=== PATIENT | female | born 1960 | race Caucasian/White ===

== ENCOUNTER 2020-06-28 12:25 | Outpatient (REF) | payer OTHER, SELFPAY ==
[2020-06-28 14:03] LABS: MANUAL DIFF FLAG NO
[2020-06-28 14:09] LABS: Basophils Absolute Auto 0.1 X10*3/uL (0.0-0.2); Basophils Percent Auto 0.7 % (0-2); Eosinophils Absolute Auto 0.2 X10*3/uL (0.0-0.4); Eosinophils Percent Auto 1.8 % (0-4); Hematocrit 45.2 % (37-47); Imm Gran Abs Auto 0.03 X10*3/uL (0.00-0.03); Imm Gran Pct Auto 0.3 % (0.0-0.4); Lymphocytes Absolute Auto 2.2 X10*3/uL (1.2-4.9); Lymphocytes Percent Auto 24.6 % (20-40); Mean Corpuscular HGB Conc 33.2 g/dl (31.0-35.0); Mean Corpuscular Hemoglobin 29.8 pg (27.0-33.0); Mean Corpuscular Volume 89.9 fL (80-98); Mean Platelet Volume 10.2 fL (9.4-12.3); Monocytes Absolute Auto 0.5 X10*3/uL (0.1-1.2); Monocytes Percent Auto 5.9 % (2-11); Neutrophils Absolute Auto 5.9 X10*3/uL (2.0-8.3); Neutrophils Percent Auto 66.7 % (45-73); Platelet Count 253 X10*3/uL (160-400); Red Blood Count 5.03 X10*6/uL (4.20-5.50); Red Cell Distribution Width 11.9 % (11.0-16.0); White Blood Count 8.9 X10*3/uL (4.8-10.8)
[2020-06-28 14:42] LABS: Alanine Aminotransferase 16 U/L (0-31); Albumin Level 4.7 g/dL (3.5-5.0); Alkaline Phosphatase 59 U/L (39-117); Anion Gap 18 (12-20); Aspartate Amino Transferase 22 U/L (5-31); Bilirubin Total 0.9 mg/dL (0.0-1.0); Blood Urea Nitrogen 17 mg/dL (9-16); Calcium 9.5 mg/dL (8.4-10.2); Carbon Dioxide 26 mmol/L (22-29); Chloride 102 mmol/L (96-108); Cholesterol 230 mg/dL; Estimated Glomerular Filt Rate > 60; Glucose Fasting 92 mg/dL (60-99); HDL Cholesterol 61 mg/dL; LDL Cholesterol Calculated 144 mg/dl; Potassium 4.8 mmol/l (3.3-5.1); Sodium 141 mmol/L (135-145); Total Protein 7.8 g/dL (6.5-8.0); Triglycerides 129 mg/dL
[2020-06-28 14:50] LABS: Free T4 (Free Thyroxine) 1.22 ng/dL (0.71-1.85); Thyroid Stimulating Hormone 1.36 uIU/mL (0.32-4.0); Vitamin D 25-OH Total 32.1 ng/mL (>30)
[2020-07-03 05:37] LABS: HPV mRNA E6/E7 Not Detected (Not Detected)
== END 2020-06-28 12:26 | disposition home or self-care (01) ==
LOC: HO.HMGCLDS 12:25
PROVIDERS: PCP Internal Medicine; Visit Provider Internal Medicine
DX: E89.0 Postprocedural hypothyroidism (principal); M85.80 Other specified disorders of bone density and structure, unspecified site; Z12.31 Encounter for screening mammogram for malignant neoplasm of breast; Z12.4 Encounter for screening for malignant neoplasm of cervix
CPT/HCPCS: 36415; 80053; 80061; 82306; 84439; 84443; 85025; 87624; 87625; 88141; 88142

== ENCOUNTER 2020-11-11 09:30 | Outpatient (REF) | payer OTHER, SELFPAY ==
--- NOTE | ~2020-11-11 | MM_ITS ---
EXAMINATION: MM SCREENING DIGITAL BREAST TOMOSYNTHESIS, BILATERAL CLINICAL INFORMATION: Screening. Asymptomatic. Personal history right lumpectomy for breast cancer 2004. History thyroid cancer 2011. COMPARISON: Mammography: 11/10/2019 TECHNIQUE: Digital breast tomosynthesis is performed in both the craniocaudal and mediolateral oblique views along with computer-aided detection (CAD). Synthesized 2D images are generated from the tomosynthesis. FINDINGS: There are scattered areas of fibroglandular density (ACR BI-RADS breast composition Category b). There are post therapy changes right breast with mild reduced breast size and stable scarring posterior 1:00 o'clock position. Neither breast demonstrates interval mass or architectural abnormality or abnormal calcifications. There is an intramammary node again seen posterior upper outer left breast. No significant changes. MM/MM tomosynthesis screening BI IMPRESSION: No mammographic evidence of malignancy. Post therapy changes right breast. ASSESSMENT: BI-RADS 2: Benign RECOMMENDATION: Routine annual mammography screening. This patient's information was entered into a reminder system with a target due date for their next mammogram.
== END 2020-11-11 09:31 | disposition home or self-care (01) ==
LOC: HO.MAMMO 09:30
PROVIDERS: PCP Internal Medicine; Visit Provider Internal Medicine
DX: Z12.31 Encounter for screening mammogram for malignant neoplasm of breast (principal)
CPT/HCPCS: 77063; 77067

== ENCOUNTER 2020-12-27 09:35 | Outpatient (REF) | payer OTHER, SELFPAY ==
[2020-12-27 12:01] LABS: Cholesterol 186 mg/dL; HDL Cholesterol 48 mg/dL; LDL Cholesterol Calculated 111 mg/dl; Triglycerides 136 mg/dL
[2020-12-27 12:25] LABS: Thyroid Stimulating Hormone 0.41 uIU/mL (0.32-4.0)
== END 2020-12-27 09:36 | disposition home or self-care (01) ==
LOC: HO.HMGCLDS 09:35
PROVIDERS: PCP Internal Medicine; Visit Provider Internal Medicine
DX: E78.5 Hyperlipidemia, unspecified (principal); E89.0 Postprocedural hypothyroidism
CPT/HCPCS: 36415; 80061; 84439; 84443

== ENCOUNTER 2021-01-03 11:49 | Outpatient (REF) | payer OTHER, SELFPAY ==
--- NOTE | ~2021-01-03 | XR_ITS ---
EXAMINATION: XR FOOT, LEFT CLINICAL INFORMATION: Pain in the left foot. COMPARISON: None TECHNIQUE: AP, lateral, and oblique views of the left foot. FINDINGS: Small plantar calcaneal spur. Bones, joints and soft tissues otherwise are unremarkable. XR/XR foot LT min 3V IMPRESSION: Small plantar calcaneal spur.
[2021-01-03 14:17] LABS: Rheumatoid Factor 32.5 IU/mL (<15.0)
[2021-01-03 14:40] LABS: Erythrocyte Sedimentation Rate 9 MM/HR (0-20)
[2021-01-04 13:35] LABS: CRP High Sensitivity 7.5 mg/L
[2021-01-07 21:52] LABS: Anti Nuclear Antibody Pattern Nuclear, Centromere; Anti Nuclear Antibody Screen POSITIVE (NEGATIVE); Anti Nuclear Antibody Titer > OR = 1:1280 titer
== END 2021-01-03 11:50 | disposition home or self-care (01) ==
LOC: HO.HMGCX 11:49
PROVIDERS: PCP Internal Medicine; Visit Provider Internal Medicine
DX: M79.672 Pain in left foot (principal); M25.50 Pain in unspecified joint; Z82.69 Family history of other diseases of the musculoskeletal system and connective tissue
CPT/HCPCS: 36415; 73630; 85652; 86038; 86039; 86141; 86431

== ENCOUNTER 2024-10-06 15:48 | Emergency (ER) | payer OTHER, SELFPAY ==
--- NOTE | ~2024-10-06 | XR_ITS ---
CLINICAL HISTORY: 2nd digit pain, swelling, redness infection 3 view [id number] digit Comparison: None Findings: There is a large cluster of coarse calcifications within the plantar soft tissues of the distal 2nd finger. Individual calcifications measure up to 1 cm in size. Adjacent bony structures are unremarkable. There is no bony destruction, erosion or periostitis. No fracture or dislocation. Tiny calcifications or ossific bodies are also noted adjacent to the neck of the second middle phalanx and adjacent to the second distal interphalangeal joint. There are moderate arthritic changes of the 1st carpometacarpal joint. No radiopaque foreign body. IMPRESSION: 1. There is a cluster of coarse calcifications within the soft tissues of the distal 2nd finger. 2. No evidence of osteomyelitis. This document has been electronically signed by: Ilene Timmons MD on 10/06/2024 17:11:15
[2024-10-06 16:12] VITALS: BP 168/92; PULSE 70; RESP 16; TEMP 36.7; O2SAT 98; BMI 33.7
--- NOTE | 2024-10-06 16:15 | ED.EXTPRO ---
HPI - Extremity Problem General Chief complaint: Skin/Abscess/Foreign Body Stated complaint: left second finger infection Time Seen by Provider: 10/06/24 19:34 History of Present Illness ED Provider: Sonia BENAVIDES Narrative: the patient is a 63-year-old woman who says that she has had some problems with the pad of her left index finger for a Few years. She says that approximately 4 years ago she had what she thought was some kind of an insect or spider bite to the pad of the left index finger and she has had problems with the finger since then. She has seen a hand surgeon, Dr. Daniel Stanley in [place]. She has had x-rays that apparently show some kind of calcinosis in the pad of the finger. She last saw a hand surgeon several weeks ago. There was consideration for surgery to remove the calcifications in the pad of the finger however the hand surgeon wants her to see a infantry operations specialist first because she has had some possible positive rheumatology testing. Patient says that about 4 or 5 days ago she started to have increasing pain and redness at the pad of the finger. She says that she called her hand surgeon on Wednesday and was told to go to emergency room if she was having significant problems. Yesterday, , she went to an urgent care. She says that she was told by the provider at the urgent care that they could not see her there because she would require IV antibiotics. She now comes on Wednesday evening for evaluation here. She denies any trauma. She denies any fever, sweats, chills. She is able to use the finger although she has pain and redness and swelling at the pad. There has been no discharge. Related Data Home Medications ?Medication ?Instructions ?Recorded ?Confirmed aspirin 81 mg tablet,delayed 81 mg PO DAILY 06/28/20 06/28/20 release (Adult Low Dose Aspirin) calcium 315 mg (as 1 tab PO DAILY 06/28/20 06/28/20 citrate)-vitamin D3 6.25 mcg (250 unit) tablet (Citracal + Vitamin D Maximum) cholecalciferol (vitamin D3) 250 250 mcg PO QWEEK 06/28/20 06/28/20 mcg (10,000 unit) capsule flaxseed oil 1,000 mg capsule 1,000 mg PO DAILY 06/28/20 06/28/20 flu vac qs 2019(4 yr up)CD(PF) 60 ml IM 06/28/20 06/28/20 mcg(15 mcgx4)/0.5 mL IM syringe garlic 400 mg tablet 400 mg PO DAILY 06/28/20 06/28/20 multivitamin with minerals-folic tab PO 06/28/20 06/28/20 acid 200 mcg chewable tablet (Adult Multivitamin Gummies) turmeric root extract 500 mg 500 mg PO DAILY 06/28/20 06/28/20 capsule omega 3,6,9 combination no.7 92 mg mg PO 01/03/21 (43 mg-22 [id number]) chew tablet Previous Rx's ?Medication ?Instructions ?Recorded levothyroxine 100 mcg tablet 100 mcg PO .COMPLEX #32 tabs 07/26/20 cephalexin 500 mg capsule 500 mg PO QID 10 days #40 caps 10/06/24 doxycycline monohydrate 100 mg 100 mg PO BID #20 caps 10/06/24 capsule Allergies Allergy/AdvReac Type Severity Reaction Status Date / Time No Known Allergies Allergy Verified 10/06/24 16:15 [No Known Allergies*] Review of Systems Review of Systems: Yes all other systems are reviewed and are negative [facility] Past Medical History Medical History (Updated 10/07/24 @ 00:01 by Martha Candelario) Positive FAIZAN (antinuclear antibody) Family history of systemic lupus erythematosus Polyarthralgia Foot pain, left Dyslipidemia Infiltrating ductal carcinoma of breast, estrogen receptor positive, stage 1 Breast cancer, right Papillary carcinoma of thyroid Osteopenia after menopause Postsurgical hypothyroidism Surgical History History of thyroidectomy History of lumpectomy of right breast Hx of cholecystectomy History of nasal septoplasty Family History Family History Father Cardiac disease Heart failure Pacemaker Mother Cancer of thyroid Endometrial cancer Son Non Hodgkin's lymphoma Son No problems noted. 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 She does not seem in distress or toxic or ill. HEENT: Other: Face is symmetrical, mucous membranes moist Eyes: General: appearance normal, both eyes and all related structures Neck: Neck: Yes normal visual inspection and Yes full ROM Skin: Other: the skin of the pad of the left index finger seems somewhat swollen and mildly erythematous. The dorsum of the finger appears normal. There is no paronychia. Neuro: Other: The patient is awake and alert with normal mental status and normal cranial nerves. She has normal motor and sensory function of the left index finger. Extrem: Other: The patient has swelling and mild erythema to the pad of the left index finger. There is no lymphangitic streaking. Patient can flex the joints of the finger well. There is no tenderness along the flexor tendon of the finger. The pad is diffusely tender but mostly tender at the very tip of the pad and also somewhat more tender on the radial side of the pad. Course Course Course Narrative: This is an RME performed by Guy Bella CNP: Additional HPI, ROS, PE not included below will be deferred to primary provider. 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 Over the past 3-4 days she is having increasing redness, pain, swelling that is now extending further down the finger and into the hand. Reports that she presented to urgent care yesterday was advised that antibiotics would not be of benefit for her since it is at the distal tip of the finger. She has followed with Daniel Stanley hand surgeon on of [facility] who was offered surgery due to the calcinosis that has formed, but wants her to have a infantry operations specialist appointment first. Medications Administered Discontinued Medications Generic Name Dose Route Start Last Admin Trade Name Maria Esther PRN Reason Stop Dose Admin Cephalexin HCl 500 mg 10/06/24 20:55 10/06/24 21:16 Cephalexin 500 Mg Capsule PO 10/06/24 20:56 500 mg ONCE ONE Administration Doxycycline Monohydrate 100 mg 10/06/24 20:55 10/06/24 21:16 Doxycycline Monohydrate 100 Mg Capsule PO 10/06/24 20:56 100 mg ONCE ONE Administration Lidocaine HCl 10 ml 10/06/24 20:05 10/06/24 20:15 Lidocaine Hcl 1 % Mpf 5 Ml Vial INFILTRATI 10/06/24 20:06 10 ml ONCE ONE Administration Medical Decision Making Medical Decision Making [facility] Narrative: The patient is a 63-year-old woman who presents for evaluation of a swollen and red pad of the left index finger. Clinically this prompted consideration for a possible felon. I do not feel there is any flexor tendon involvement. I do not feel there is any lymphangitis associated with this. There are no systemic symptoms. She has a normal white count differential. Patient has had problems with the pad of the finger for some time which she attributes to some kind of an insect or spider bite 4 years ago. 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 The x-ray is fairly impressive with a degree of calcifications within the pad. Since the patient seemed to have 2 areas of significant tenderness on the pad of the finger I felt it would be reasonable to ensure that there was no pus collection that might be drainable. I therefore proceeded to administer a digital block using 1% lidocaine at the base of the finger after prepping the skin with Betadine. 2.5 mL of 1% lidocaine were administered with 27 gauge needle on either side of the base of the finger resulting in good anesthesia at the tip of the finger. I then used a #11 Blade to make 2 very small incisions in the areas of maximal tenderness at the pad. Neither of these incisions released pus. both incisions only released a small amount of blood. This was swabbed and sent for culture. I reviewed the case including pictures of the finger and of the x-rays with the on-call provider for Orthopedics and we agreed that the patient could probably be managed as an outpatient appropriately on oral antibiotics and follow up with her hand surgeon. She should therefore take cephalexin and doxycycline over the weekend and call her hand surgeon on Wednesday morning. If worse over the weekend she should try to reach the on-call provider for her hand surgeon or return to the ER or go to [facility] Emergency Room since her hand surgeon is affiliated with that institution. Lab Data 10/06/24 17:36 10/06/24 17:36 Labs: Lab Results 10/06/24 Range/Units 17:36 WBC 7.9 (4.8-10.8) X10*3/uL RBC 4.37 (4.20-5.50) X10*6/uL Hgb 13.2 (12.0-16.0) g/dl Hct 39.0 (37.0-47.0) % MCV 89.2 (80.0-98.0) fL MCH 30.2 (27.0-33.0) pg MCHC 33.8 (31.0-35.0) g/dl RDW 12.2 (11.0-16.0) % Plt Count 223 (160-400) X10*3/uL MPV 9.4 (9.4-12.3) fL Immature Gran % (Auto) 0.4 (0.0-0.4) % Neut % (Auto) 62.0 (45-73) % Lymph % (Auto) 26.7 (20-40) % [place] % (Auto) 7.3 (2-11) % Eos % (Auto) 3.2 (0-4) % Baso % (Auto) 0.4 (0-2) % Lymph # (Auto) 2.1 (1.2-4.9) X10*3/uL [place] # (Auto) 0.6 (0.1-1.2) X10*3/uL Eos # (Auto) 0.3 (0.0-0.4) X10*3/uL Baso # (Auto) 0.0 (0.0-0.2) X10*3/uL Abs Immat Gran (auto) 0.03 (0.00-0.03) X10*3/uL Absolute Neuts (auto) 4.9 (2.0-8.3) x10*3/uL Absolute Nucleated RBC 0.000 (0.0-0.012) X10*3/uL Nucleated RBC % (auto) 0.0 (0.0-0.2) /100WBC Sodium 140 (135-145) mmol/L Potassium 5.0 (3.3-5.1) mmol/L Chloride 103 (96-108) mmol/L Carbon Dioxide 28 (22-29) mmol/L Anion Gap 14 (12-20) BUN 17 H (9-16) mg/dL Creatinine 0.76 (0.5-1.4) mg/dL Estim Creat Clear Calc 90.9 Estimated GFR > 60 Random Glucose 90 (60-115) mg/dL Calcium 9.6 (8.4-10.2) mg/dL Total Bilirubin 0.7 (0.0-1.0) mg/dL AST 26 (5-31) U/L ALT 21 (0-31) U/L Alkaline Phosphatase 51 (39-117) U/L C-Reactive Protein 1.38 H (< or = 0.50) mg/dL Total Protein 7.2 (6.5-8.0) g/dL Albumin 4.2 (3.5-5.0) g/dL Procedures Abscess I/D Site: hand ( Pad of left index finger, possible felon) Side (if applicable): left Local Anesthetic: lidocaine 1% Amount of anesthesia used (mL): 5 Technique: incised with blade ( 2 very small incisions were made at the pad at the sites of maximal tenderness. Neither incision released any pus. Only a small amount of bleeding.) Sent for culture/gram staining?: Yes Irrigation: No Packing used?: none Discharge Plan Discharge Clinical Impression: Cellulitis of finger of left hand Patient Disposition: Home, Self-Care Additional Instructions: Please take the antibiotics as prescribed. The doxycycline should be taken approximately every 12 hours. The cephalexin should be taken approximately every 6 hours. Keep the hand elevated to reduce swelling and pain. Use bacitracin to the small wounds. Please stay in touch with Dr. Stanley, call the office on Wednesday or over the weekend, if you feel you are worse, contact the on-call provider. If significantly worse return to the emergency room or go to the [facility] Emergency room. Prescriptions: New cephalexin 500 mg capsule 500 mg PO QID 10 Days Qty: 40 0RF doxycycline monohydrate 100 mg capsule 100 mg PO BID Qty: 20 0RF No Action levothyroxine 100 mcg tablet 100 mcg PO .COMPLEX Qty: 32 6RF Rx Instructions: 100 mcg PO 1 tablet daily for 6 days a week and 1 and half tablets on Wednesday; Flucelvax Quad (PF) 60 mcg (15 mcg x 4)/0.5 mL syringe IM aspirin [Adult Low Dose Aspirin] 81 mg tablet,delayed release (DR/EC) 81 mg PO DAILY calcium citrate-vitamin D3 [Citracal + D Maximum] 315 mg-6.25 mcg (250 unit) tablet 1 tab PO DAILY Adult Multivitamin Gummies 200 mcg tablet,chewable PO cholecalciferol (vitamin D3) 250 mcg (10,000 unit) capsule 250 mcg PO QWEEK flaxseed oil 1,000 mg capsule 1,000 mg PO DAILY Rx Instructions: administer with a meal garlic 400 mg tablet 400 mg PO DAILY turmeric root extract 500 mg capsule 500 mg PO DAILY Referrals: [facility] [Provider Group] Interventions: ED Discharge Assessment Last Done: 10/06/24 21:55 Discharge Date/Time: 10/06/24 21:57 Print Language: Urdu
[2024-10-06 17:59] LABS: MANUAL DIFF FLAG NO
[2024-10-06 18:03] LABS: Basophils Percent Auto 0.4 % (0-2); Eosinophils Absolute Auto 0.3 X10*3/uL (0.0-0.4); Eosinophils Percent Auto 3.2 % (0-4); Hemoglobin 13.2 g/dl (12.0-16.0); Imm Gran Abs Auto 0.03 X10*3/uL (0.00-0.03); Imm Gran Pct Auto 0.4 % (0.0-0.4); Lymphocytes Absolute Auto 2.1 X10*3/uL (1.2-4.9); Lymphocytes Percent Auto 26.7 % (20-40); Mean Corpuscular HGB Conc 33.8 g/dl (31.0-35.0); Mean Corpuscular Hemoglobin 30.2 pg (27.0-33.0); Mean Corpuscular Volume 89.2 fL (80.0-98.0); Mean Platelet Volume 9.4 fL (9.4-12.3); Monocytes Absolute Auto 0.6 X10*3/uL (0.1-1.2); Monocytes Percent Auto 7.3 % (2-11); Neutrophils Absolute Auto 4.9 x10*3/uL (2.0-8.3); Platelet Count 223 X10*3/uL (160-400); Red Blood Count 4.37 X10*6/uL (4.20-5.50); Red Cell Distribution Width 12.2 % (11.0-16.0); White Blood Count 7.9 X10*3/uL (4.8-10.8)
[2024-10-06 18:15] VITALS: BP 170/75; PULSE 70; RESP 16; TEMP 36.6; O2SAT 96
--- OUTSIDE RECORDS SUMMARY | 2024-10-06 18:15 | XMS_ITS | Continuity of Care Document ---
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 Role Phone Conchis HANSON, Ryan Lanier Primary Care Physician [place] [facility] [place] 08/31/24 - 09/30/24 [facility] Adult [address] [place] [phone]- Encounter Type: Triage Allergies, Adverse Reactions, Alerts No Known Allergies Immunizations Given and Recorded Vaccine Date Status Refusal Reason zoster vaccine, inactivated 08/21/23 Recorded zoster vaccine, inactivated 06/02/23 Recorded SARS-CoV-2 mRNA ([id number]) vax 10/20/21 Recorded influenza virus vaccine, inactivated 03/31/21 Konrad rded influenza virus vaccine, inactivated 03/10/20 Konrad rded influenza virus vaccine, inactivated 02/21/18 Konrad rded influenza virus vaccine, inactivated 1 06/08/17 Gi jeromy influenza virus vaccine, inactivated 05/30/14 Give n influenza virus vaccine, inactivated 03/28/13 Give n influenza virus vaccine, inactivated 04/10/08 Give n SARS-CoV-2 (COVID-19) mRNA BNT-162b2 vac 03/31/21 Recorded SARS-CoV-2 (COVID-19) mRNA BNT-162b2 vac 07/29/20 Recorded SARS-CoV-2 (COVID-19) mRNA BNT-162b2 vac 07/08/20 Recorded tetanus/diphtheria/pertussis, acel(Tdap) 06/13/18 Recorded influ virus vac, H1N1, inactive(oldterm) 2 05/01/09 Given Tet/Diphth/Acel, Pertussis (oldterm) 04/10/08 Give n tetanus-diphtheria toxoids (Td) 07/08/98 Given 1Result Comment: [06/08/2017] [facility] [id number] 2Admin Note: per pt rcvd elsewhere Medications (Vitamin D3) Cholecalciferol 400 HALF-WAY units/mL oral syringe 1 mL = 10 mcg, By Mouth, Daily, 0 Refills, Maintenance, 07/11/21 8:15:00 AM EST, Partial fill upon patientrequest if the prescription is for a schedule II opioid drug. Start Date: 07/11/21 Status: Ordered Repeat number: 1 aspirin 81 mg oral tablet 81 mg, 1, tablet, By Mouth, Daily, 0 Refills Start Date: 11/11/05 Status: Ordered Repeat number: 1 Citracal Maximum + Vitamin D Tablet 2 tablets, By Mouth, Daily, 0 Refills, Maintenance, 10/15/11 1:26:21 PM EDT Start Date: 10/15/11 Status: Ordered Repeat number: 1 elderberry 0 Refills, Maintenance, 07/11/21 8:15:00 AM EST, Partial fill upon patient request if the prescription is for a schedule II opioid drug. Start Date: 07/11/21 Status: Ordered Repeat number: 1 Glucosamine Chondroitin 1 capsule, By Mouth, Daily, 0 Refills, Maintenance, 08/28/24 9:06:00 AM EDT, Partial fill upon patient request if the prescription is for a schedule II opioid drug. Start Date: 08/28/24 Status: Ordered Repeat number: 1 levothyroxine 0.1 mg oral tablet See Instructions, TAKE 1 TABLET BY MOUTH EVERY DAY ON SUNDAYS TAKE 1+1/2 TABLETS, # 96 tablet, 3 Refills, Maintenance, 08/28/24 9:31:00 AM EDT, [facility]/pharmacy #[id number], 172.4, cm, 08/28/24 9:07:00 EDT, Height Start Date: 08/28/24 Status: Ordered Quantity: 96.0 Unit: tablet Repeat number: 4 [place]-3 Fish Oil = 1,200 mg, By Mouth, 3 times a day, 0 Refills, Maintenance, 08/28/24 9:07:00 AM EDT, Partial fill upon patient request if the prescription is for a schedule II opioid drug. Start Date: 08/28/24 Status: Ordered Repeat number: 1 Turmeric = 500 mg, By Mouth, Daily, 0 Refills, Maintenance, 07/11/21 8:15:00 AM EST, Partial fill upon patientrequest if the prescription is for a schedule II opioid drug. Start Date: 07/11/21 Status: Ordered Repeat number: 1 Problem List Condition Confirmation Course Effective Dates Status Health Status Informant Acquired hypothyroidism Confirmed Active Cholecystectomy Confirmed Active Colonoscopy 1, 2 Confirmed Active Gastroesophageal reflux disease with hiatal hernia Confirmed Active Bilateral hip pain Confirmed Active History of breast cancer in female 3 Confirmed 09/18/04 Active History of thyroid cancer 4 Confirmed Active Hypercholesterolemia Confirmed Active Mitral regurgitation 5 Confirmed Active Obese class I Confirmed Active Thumb pain Confirmed Active Raynauds disease Confirmed Active 1Colonoscopy 2013 normal, repeat 2023. 2colo 2003 nl, repeat 2012 3Right breast cancer,PT1c,PN1,hormone receptor positive, lumpectomy, received AC-T chemotherapy, Tamoxifen and Arimidex and radiation 4Status post thyroidectomy 2011, status post further removal of malignant thyroid tissue 2013. Followed by endocrinology Dr. womack 5trace no abx proph needed Social History Social History Type Response Smoking Status Never smoker entered on: 05/30/14 Sex Sex Representation Female (finding) Patient Care team information Care Team Personnel Name: Jaci Gonzalez RN Position: [facility] RN Member Role: Primary Care Nurse Name: Josefa Alvarado RN Position: [facility] RN Member Role: Primary Care Nurse Name: Ryan Balderrama MD Position: [facility] Physician - Primary Care Member Role: PCP Address: [address] [place] [phone]- Telecom: Name: Juliane Larson Position: [facility] Member Role: Primary Care Nurse Care Team Related Persons Name: CAROL GAMBOA Insurance Providers Guarantor name: DANDRE COOPER [facility] Plan Information #: 1 Payer: [facility] Member Number: NA Policy Number: NA Group Number: NA
--- OUTSIDE RECORDS SUMMARY | 2024-10-06 18:15 | XMS_ITS | Continuity of Care Document ---
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 Role Phone Conchis HANSON, Ryan Lanier Primary Care Physician [place] [facility] [place] 10[place]01/24 [facility] Adult [address] [place] [phone]- Encounter Type: Triage Allergies, Adverse Reactions, Alerts No Known Allergies Immunizations Given and Recorded Vaccine Date Status Refusal Reason zoster vaccine, inactivated 08/21/23 Recorded zoster vaccine, inactivated 06/02/23 Recorded SARS-CoV-2 mRNA ([id number]) vax 10/20/21 Recorded influenza virus vaccine, inactivated [...] toxoids (Td) 07/08/98 Given 1Result Comment: [06/08/2017] [facility] [id number] 2Admin Note: per pt rcvd elsewhere Medications (Vitamin D3) Cholecalciferol 400 CUSTODIAL units/mL oral syringe 1 mL = 10 [...] 3 Refills, Maintenance, 08/28/24 9:31:00 AM EDT, [facility]/pharmacy #[id number], 172.4, cm, 08/28/24 9:07:00 EDT, Height Start Date: 08/28/24 Status: Ordered Quantity: 96.0 Unit: tablet Repeat number: 4 [place]-3 Fish Oil = 1,200 mg, By Mouth, [...] Team Personnel Name: Jaci Gonzalez RN Position: [facility] RN Member Role: Primary Care Nurse Name: Josefa Alvarado RN Position: [facility] RN Member Role: Primary Care Nurse Name: Ryan Balderrama MD Position: [facility] Physician - Primary Care Member Role: PCP Address: [address] [place] [phone]- Telecom: Name: Juliane Larson Position: [facility] Member Role: Primary Care Nurse Care Team Related Persons Name: CAROL GAMBOA Insurance Providers Guarantor name: DANDRE COOPER [facility] Plan Information #: 1 Payer: [facility] Member Number: NA Policy Number: NA Group Number: NA
[2024-10-06 18:17] LABS: Alanine Aminotransferase 21 U/L (0-31); Albumin Level 4.2 g/dL (3.5-5.0); Alkaline Phosphatase 51 U/L (39-117); Anion Gap 14 (12-20); Aspartate Amino Transferase 26 U/L (5-31); Bilirubin Total 0.7 mg/dL (0.0-1.0); Blood Urea Nitrogen 17 mg/dL (9-16); C Reactive Protein 1.38 mg/dL (< or = 0.50); Calcium 9.6 mg/dL (8.4-10.2); Carbon Dioxide 28 mmol/L (22-29); Chloride 103 mmol/L (96-108); Creatinine Clr Calc Pharmacy 90.9; Estimated Glomerular Filt Rate > 60; Glucose Random 90 mg/dL (60-115); Sodium 140 mmol/L (135-145); Total Protein 7.2 g/dL (6.5-8.0)
--- NOTE | 2024-10-06 18:20 | MHC.EDTECH ---
This pct just assumed care of Patient ,vitals taken ,Call alejandro within Pt reach .
--- NOTE | 2024-10-06 18:31 | PC.NURSE ---
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 Over the past 3-4 days she is having increasing redness, pain, swelling that is now extending further down the finger and into the hand. Reports that she presented to urgent care yesterday was advised that antibiotics would not be of benefit for her since it is at the distal tip of the finger. She has followed with Daniel Stanley hand surgeon on of [facility]. Patient alert and oriented. Respirations even and non-labored. Abdomen soft, non-tender. Tip of left 2nd finger red, swollen and warm with small blister.
[2024-10-06] MEDS: Lidocaine HCl 1 % MPF 5 ML VIAL 10 ML INFILTRATI (20:15)
[2024-10-06 21:11] VITALS: BP 160/67; PULSE 63; RESP 16; TEMP 36.7; O2SAT 97
[2024-10-06] MEDS: cephALEXin 500 MG CAPSULE PO (21:16)
[2024-10-06] MEDS: Doxycycline Monohydrate 100 MG CAPSULE PO (21:16)
[2024-10-06 21:55] VITALS: BP 160/67; PULSE 63; RESP 16; TEMP 36.7; O2SAT 97
== END 2024-10-06 21:57 | disposition home or self-care (01) ==
PROVIDERS: Nurse Practitioner Family; Emergency Provider Emergency Medicine; PCP Internal Medicine
DX: L03.012 Cellulitis of left finger (principal); M79.645 Pain in left finger(s); Z79.899 Other long term (current) drug therapy
CPT/HCPCS: 10060; 36415; 73140; 80053; 85025; 86140; 87070; 87205; 99284; J2003

== ENCOUNTER → 2024-10-06 16:16 | Outpatient (BNV) | payer SELFPAY | PROVIDERS: PCP Internal Medicine; Visit Provider Radiology Diagnostic Radiology | DX: M61.48 Other calcification of muscle, other site (principal) | CPT/HCPCS: 73140 ==

== ENCOUNTER 2025-02-03 09:32 | Emergency (ER) | payer OTHER, SELFPAY ==
--- NOTE | ~2025-02-03 | XR_ITS ---
CLINICAL HISTORY: Torticollis 5 views cervical spine Comparison: None Findings: No fractures or listhesis. Odontoid and lateral masses intact. Mild degenerative facet arthropathy throughout. Mild disc space narrowing C3 through C6 with small anterior and posterior vertebral body osteophytes. Unicinate and transverse processes intact. Mild bony neural foramina compromise C3-4 and C4-5 on the left Lordotic curvature is preserved. No scoliosis Normal bone mineralization. Multiple surgical clips lower neck. No widening of the retropharyngeal soft tissues. Lung apices unremarkable. Impression: 1. No fractures or listhesis. 2. Mild degenerative spondylosis. Minimal bony neural foramina compromise. 3. Normal cervical lordosis. This document has been electronically signed by: Christiano Lao MD on 02/03/2025 10:58:23
[2025-02-03 09:35] VITALS: BP 180/85; PULSE 78; RESP 16; TEMP 36.1; O2SAT 98; BMI 32.3
[2025-02-03 09:44] VITALS: BP 145/72; PULSE 68; RESP 18; O2SAT 100
--- NOTE | 2025-02-03 10:03 | ED.NECK ---
HPI - Neck Pain/Injury General Chief Complaint: Neck Pain/Injury Stated Complaint: neck pain Time Seen by Provider: 02/03/25 09:48 Source: patient Mode of arrival: ambulatory Limitations: no limitations History of Present Illness ED Provider: HPI Narrative: 64-year-old, nondiabetic, no injury, presenting with torticollis with decreased range of motion to the left for the past 1 week, has been working outside in the garden and prior to that was playing golf, no fevers or chills, no dysphonia, no dysphagia, no weakness or numbness in upper extremities. Pain is worse with movement. Related Data Home Medications ?Medication ?Instructions ?Recorded ?Confirmed aspirin 81 mg tablet,delayed 81 mg PO DAILY 06/28/20 06/28/20 release (Adult Low Dose Aspirin) calcium 315 mg (as 1 tab PO DAILY 06/28/20 06/28/20 citrate)-vitamin D3 6.25 mcg (250 unit) tablet (Citracal + Vitamin D Maximum) cholecalciferol (vitamin D3) 250 250 mcg PO QWEEK 06/28/20 06/28/20 mcg (10,000 unit) capsule flaxseed oil 1,000 mg capsule 1,000 mg PO DAILY 06/28/20 06/28/20 flu vac qs 2019(4 yr up)CD(PF) 60 ml IM 06/28/20 06/28/20 mcg(15 mcgx4)/0.5 mL IM syringe garlic 400 mg tablet 400 mg PO DAILY 06/28/20 06/28/20 multivitamin with minerals-folic tab PO 06/28/20 06/28/20 acid 200 mcg chewable tablet (Adult Multivitamin Gummies) turmeric root extract 500 mg 500 mg PO DAILY 06/28/20 06/28/20 capsule omega 3,6,9 combination no.7 92 mg mg PO 01/03/21 (43 mg-22 [id number]) chew tablet Previous Rx's ?Medication ?Instructions ?Recorded levothyroxine 100 mcg tablet 100 mcg PO .COMPLEX #32 tabs 07/26/20 cephalexin 500 mg capsule 500 mg PO QID 10 days #40 caps 10/06/24 doxycycline monohydrate 100 mg 100 mg PO BID #20 caps 10/06/24 capsule capsaicin 0.035 % topical patch 1 patch topical TID PRN pain 7 02/03/25 days #10 ea prednisone 20 mg tablet 40 mg (2 x 20 mg) PO DAILY 4 days 02/03/25 #8 tabs Allergies Allergy/AdvReac Type Severity Reaction Status Date / Time No Known Allergies (No Known Allergy Verified 02/03/25 09:38 Allergies*) Review of Systems Constitutional: Constitutional: Reports as per [facility] Past Medical History Medical History (Updated 02/03/25 @ 11:22 by Jayesh Andrews DO) Positive FAIZAN (antinuclear antibody) Family history of systemic lupus erythematosus Polyarthralgia Foot pain, left Dyslipidemia Infiltrating ductal carcinoma of breast, estrogen receptor positive, stage 1 Breast cancer, right Papillary carcinoma of thyroid Osteopenia after menopause Postsurgical hypothyroidism Surgical History History of thyroidectomy History of lumpectomy of right breast Hx of cholecystectomy History of nasal septoplasty Family History Family History Father Cardiac disease Heart failure Pacemaker Mother Cancer of thyroid Endometrial cancer Son Non Hodgkin's lymphoma Son No problems noted. 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 Current occupational exposures/hazards: No Physical Exam Vital Signs: Vital Signs: Last Vital Signs Temp 96.9 F 02/03/25 09:35 Pulse 68 02/03/25 09:44 Resp 18 02/03/25 09:44 BP 145/72 H 02/03/25 09:44 Pulse Ox 100 02/03/25 09:44 O2 Del Method Room Air 02/03/25 09:44 BMI result Body Mass Index 32.3 Const: Other: Gen: ?Overall well-appearing patient HEENT: PERRLA, EOMI, MMM, uvula is midline, good dentition, no anterior neck masses Neck: Decreased range of motion rotation to the left and extension, spasm to the left trapezius and suboccipital area CV: RRR, no obvious murmurs appreciated Resp: ?No wheezing rales rhonchi no stridor moving air well MSK: FROM, strength 5/5 all extremities, radial pulses +2 bilaterally Skin: Warm, dry, intact, Neuro: ?Alert and oriented x3, moving upper and lower extremities symmetrically, no obvious facial asymmetry noted, no motor deficits bilateral upper extremities Medications Administered Discontinued Medications Generic Name Dose Route Start Last Admin Trade Name Maria Esther PRN Reason Stop Dose Admin Dexamethasone 10 mg 02/03/25 10:04 02/03/25 10:29 Dexamethasone 2 Mg Tablet PO 02/03/25 10:05 10 mg ONCE ONE Administration Dexamethasone 10 mg 02/03/25 10:25 02/03/25 10:30 Dexamethasone 2 Mg Tablet PO 02/03/25 10:26 Not Given ONCE ONE Medical Decision Making Medical Decision Making MDM Narrative: Examination of the neck and oropharynx with consideration for below, we will obtain x-rays to evaluate for obvious destructive lesions unlikely, likely has spasm neurovascular motor or sensory deficits identified, did not feel further blood work or CT imaging is indicated, offered trigger point injections, continue anti-inflammatories, outpatient follow up with physical therapy anticipated Differential Diagnosis Differential Diagnoses: The differential diagnosis associated with the presentation includes (Musculoskeletal, infectious, traumatic, cervical myelopathy, malignancy) Independent Interpretation I performed an independent interpretation of an: Plain X-Ray (Arthritic changes and loss of lordosis resulting in straight spine, this is versus Radiology interpretation) Radiology Impression Discussion of test interpretation with radiology: I have reviewed the radiologist's reading. (mpression: 1. No fractures or listhesis. 2. Mild degenerative spondylosis. Minimal bony neural foramina compromise. 3. Normal cervical lordosis.) Tests considered The following testing was considered but not selected: CT cervical spine, CT neck soft tissue, blood work Prescription Management I considered prescription management with: Pain Medication Procedures Procedure Narrative Procedure Narrative: 10 trigger points identified to the right and left neck suboccipital and trapezius area, cleaned with alcohol and using 21 gauge needle a total of 14 cc 2% lidocaine without epinephrine injected, patient tolerated procedure well, this is a verbal consent Discharge Plan Discharge Clinical Impression: Acute torticollis Patient Disposition: Home, Self-Care Additional Instructions: Gentle axigd-vu-[id number] exercises at home, heat and ice both good Continue with steroids starting tomorrow Capsaicin ointment patches to your neck and trapezius area Trigger points injected hopefully this will help with some of the spasm Worsening issues or concerns come back to the ER otherwise please follow up with the PCP I believe he will need physical therapy Prescriptions: New prednisone 20 mg tablet 40 mg PO DAILY 4 Days Qty: 8 0RF capsaicin 0.035 % adhesive patch,medicated 1 patch topical TID PRN (Reason: pain) 7 Days Qty: 10 0RF No Action levothyroxine 100 mcg tablet 100 mcg PO .COMPLEX Qty: 32 6RF Rx Instructions: 100 mcg PO 1 tablet daily for 6 days a week and 1 and half tablets on Wednesday; cephalexin 500 mg capsule 500 mg PO QID 10 Days Qty: 40 0RF doxycycline monohydrate 100 mg capsule 100 mg PO BID Qty: 20 0RF Flucelvax Quad [id number] (PF) 60 mcg (15 mcg x 4)/0.5 mL syringe IM aspirin [Adult Low Dose Aspirin] 81 mg tablet,delayed release (DR/EC) 81 mg PO DAILY calcium citrate-vitamin D3 [Citracal + D Maximum] 315 mg-6.25 mcg (250 unit) tablet 1 tab PO DAILY Adult Multivitamin Gummies 200 mcg tablet,chewable PO cholecalciferol (vitamin D3) 250 mcg (10,000 unit) capsule 250 mcg PO QWEEK flaxseed oil 1,000 mg capsule 1,000 mg PO DAILY Rx Instructions: administer with a meal garlic 400 mg tablet 400 mg PO DAILY turmeric root extract 500 mg capsule 500 mg PO DAILY Print Language: Danish
--- OUTSIDE RECORDS SUMMARY | 2025-02-03 10:10 | XMS_ITS | Clinical Summary ---
Author Organization [facility]ly [facility] Address [address] [address] Phone Care Team Providers Care Rating Clerk Name Role Phone Maryann Black MD Primary Care Provider Allergies No known active allergies Medications levothyroxine (SYNTHROID, LEVOTHROID) 100 MCG tablet 1 tab a day 6 days a week, 1 and 1/2 tab 1 day a week 04/16/2021 Active aspirin 81 MG EC tablet Take 81 mg by mouth daily. Active calcium citrate-vitamin D3 315 mg-6.25 mcg (250 unit) per tablet Take 1 tablet by mouth daily. Active cholecalciferol (VITAMIN D3) 2,000 unit tabletIndications :5 days a week Take 2,000 Units by mouth daily. Indications : 5 days a week Active flaxseed oiL 1,000 mg Cap Take 1,000 mg by mouth daily. Active GARLIC ORAL Take 400 mg by mouth daily. Active glucosam/chond-ms m1/C/fallon/bor (GLUCOSAMINE-JEANETTE D-MSM COMPLEX ORAL) Take by mouth. Active multivit-minerals /folic acid (ADULT MULTIVITAMIN GUMMIES ORAL) Take by mouth daily. Active TURMERIC ORAL Take by mouth. Active ELDERBERRY FRUIT ORALIndications:v it c and zinc Take by mouth. Indications : vit c and zinc Active Active Problems Problem Noted Date Diagnosed Date Raynaud's phenomenon without gangrene 05/10/2021 Assessment & Plan (05/10/2021 7:19 PM EST): Keep warm, dress in layers. Optimize stress management strategies. Avoid vasoconstrictors in OTC products for cold/flu and sinus. Rheumatoid factor positive 05/09/2021 Assessment & Plan (05/10/2021 7:05 PM EST): I reviewed with Zahra that it would be helpful to get prior readings for comparison though based on her history and today's exam I do not find a lot of support to suggest rheumatoid arthritis at this time. To make sure that she is not an increased risk for developing rheumatoid arthritis in the nearest future I took the liberty of getting CCP antibody today. Joint protection, energy conservation techniques reviewed and strongly encouraged. Splinting, assistive devices as needed. Consider formal OT if home exercise program not sufficient. Swelling of both hands 05/09/2021 Assessment & Plan (05/10/2021 7:06 PM EST): Consider compression gloves for nighttime. Keratoconjunctivitis sicca not due to Sjogren's syndrome 05/09/2021 Assessment & Plan (05/10/2021 7:06 PM EST): Keep well-hydrated. Avoid spicy and acidic foods. Diligent mouth hygiene. Regular dental checkups. She may benefit from sucking on sugarless lozenges, using lubricating/moisturizing mouthwash versus mouth spray such as Biotene. SSA, SSB antibodies requested to make sure that she does not suffer from Sjogren's syndrome. History of right breast cancer 05/09/2021 Assessment & Plan (05/10/2021 7:01 PM EST): Continue regular breast self exams and yearly mammography. History of thyroid cancer 05/09/2021 Assessment & Plan (05/10/2021 7:01 PM EST): Close follow-up with oncologist/customer success intern as scheduled. Class 1 obesity due to exces s calories with serious comorbidity and body mass index (BMI) of 33.0 to 33.9 in adult 05/09/2021 Assessment & Plan (05/10/2021 6:56 PM EST): Portion control. Limit concentrated sugars, saturated fats and calories in the diet. Keep well-hydrated. If unable to achieve expected goal consider formal dietary/nutritional support. Facial rash 05/09/2021 Assessment & Plan (05/10/2021 7:00 PM EST): Optimize stress management strategies. Avoid extremes of temperature, drinking alcohol, eating spicy food and consider seeing investigator internal revenue if symptoms do not improve or worsen. Daily sun protection preferably all year round. De Quervain's disease (tenosynovitis) 05/09/2021 Assessment & Plan (05/10/2021 6:58 PM EST): Joint protection, energy conservation. Gentle exercises after warm pack application if in examples with pictures and detailed instructions printed for home use today. Splinting and assistive devices as needed. Excuse from work and lifting over 5 pounds for the following 2 weeks to recuperate smoother. She may benefit from topical Arnica, Biofreeze, Voltaren versus medicated patches such as Salonpas or IcyHot patch if needed. Immunizations Immunization Administration Dates Next Due Influenza Quadrivalent Preservative Free IM 03/08 Family History Medical History Relation Comments Heart disease Father Heart failure Father Pacemaker Father Breast cancer Maternal Aunt Endometrial cancer Mother Thyroid cancer Mother Non-hodgkins Lymphoma Son Relation Status Comments Father Maternal Aunt Mother Son Social History Tobacco Use Types Packs/Day Years Used Date Smoking Tobacco: Never Smokeless Tobacco: Never Education Answer Date Recorded Are you interested in more education? Not on margie e 10/03/2022 Are you concerned about learning? Not on file 10/03/2022 No 10/03/2022 No 10/03/2022 Digital Access Answer Date Recorded No 11/01/2022 No 11/01/2022 Reliable internet access at home? Not on file 11/01/2022 Device with a working camera? Not on file Comments Unknown Sex and Gender Information Value Date Recorded Sex Assigned at Not on file Legal Sex Female 9:44 AM EDT Gender Identity Not on file Sexual Orientation Not on file Last Filed Vital Signs Vital Sign Reading Time Taken Comments Blood Pressure 130/76 05/09/2021 1:05 PM EST Pulse - - Temperature - - Respiratory Rate - - Oxygen Saturation - - Inhaled Oxygen Concentration - - Weight 98 kg (216 lb) 05/09/2021 1:05 PM EST wit h shoes Height 170.2 cm (5' 7 ) 05/09/2021 1:05 PM EST Body Mass Index 33.83 05/09/2021 1:05 PM EST Plan of Treatment Health Maintenance Due Date Last Done Comments LIPID PANEL 1960 TSH LEVEL 1960 DEPRESSION SCREENING 1972 HEPATITIS C SCREENING 1978 HIV ONE-TIME SCREENING (18-6 5 YEARS) 1978 PAP SMEAR 1981 MAMMOGRAM 2000 COLOGUARD 2005 COLONOSCOPY 2005 COLORECTAL CANCER SCREENING 2005 FIT TEST 2005 FOBT 2005 SIGMOIDOSCOPY 2005 VIRTUAL COLONOSCOPY 2005 PNEUMOCOCCAL VACCINES (50+ years) (1 of 1 - PCV) 2010 ZOSTER VACCINES (1 of 2) 2010 COVID-19 VACCINE (4 - 2023-2 5 season) 2024 03/31/2021, 07/29/2020, 07/08/2020 Adult Td,Tdap Booster 06/13/2028 06/13/2018 RSV VACCINE (1 - 1-dose 75+ series) 12/22/2035 SMOKING STATUS SCREENING (On ce After 26 Yrs) Completed 05/09/2021 HEPATITIS A VACCINES Aged Out No long er eligible based on patient's age to complete this topic HIB VACCINES Aged Out No longer eligi ble based on patient's age to complete this topic MENINGOCOCCAL VACCINES (ACWY) Aged Out No longer eligible based on patient's age to complete this topic MENINGOCOCCAL VACCINES (B) Aged Out N o longer eligible based on patient's age to complete this topic Medical Devices Not on file Insurance [employer] [address] [place] [address] [place] [address] [place] [address] [place] [address] [place] [address] PLANS DIRECT [employer] [address] [place] [place] [address] DIRECT Care Teams Rating Clerk Relationship Specialty Start Date End Date Maryann Black MD [address] [id number] PCP - General Internal Medicine 01/27/21 Additional Source Comments The information contained in this document represents components of the legal health record. It is not the complete legal health record.[facility]
--- NOTE | 2025-02-03 10:17 | PC.NURSE ---
Addendum entered by Mehanz Arce RN 02/03/25 10:17: Patient is a 64-year-old, nondiabetic, no injury, presenting with torticollis with decreased range of motion to the left for the past 1 week, has been working outside in the garden and prior to that was playing golf, no weakness or numbness in upper extremities. Pain is worse with movement especially to the left. Alert and oriented. Respirations even and non-labored. Abdomen soft, non-tender with positive bowel sounds. Original Note: Medical History Breast cancer, right Dyslipidemia Family history of systemic lupus erythematosus Foot pain, left Infiltrating ductal carcinoma of breast, estrogen receptor positive, stage 1 Osteopenia after menopause Papillary carcinoma of thyroid Polyarthralgia Postsurgical hypothyroidism
[2025-02-03] MEDS: Lidocaine HCl 2 % 20 ML VIAL 10 ML INFILTRATI (11:40)
[2025-02-03 12:01] VITALS: BP 145/72; PULSE 68; RESP 18; TEMP 36.1; O2SAT 100
== END 2025-02-03 12:02 | disposition home or self-care (01) ==
PROVIDERS: Emergency Provider Emergency Medicine; PCP Internal Medicine
DX: M43.6 Torticollis (principal); M54.2 Cervicalgia
CPT/HCPCS: 20553; 72050; 99284; J2003; J8540

== ENCOUNTER → 2025-02-03 10:04 | Outpatient (BNV) | payer OTHER, SELFPAY | PROVIDERS: Emergency Provider Emergency Medicine; PCP Internal Medicine; Visit Provider Radiology Diagnostic Radiology | DX: M43.6 Torticollis (principal) | CPT/HCPCS: 72050 ==